=== PATIENT | male | born 1980 | race Caucasian/White ===

== ENCOUNTER 2018-06-11 09:39 | Emergency (ER) | payer SELFPAY ==
[~2018-06-11] VITALS: Ht 172.7 cm; Wt 91.0 kg
[2018-06-11 09:49] VITALS: BP 119/74
== END 2018-06-11 09:59 | disposition left against medical advice (07) ==
LOC: ER 09:44
DX: R51 Headache (principal); Z53.21 Procedure and treatment not carried out due to patient leaving prior to being seen by health care provider